=== PATIENT | female | born 1940 | race Caucasian/White ===

== ENCOUNTER 2018-05-28 11:18 | Outpatient (CLI) | payer MEDICARE | END 2018-05-28 11:19 | disposition EMS.NT | LOC: EMS 11:18 | PROVIDERS: ATTEND Surgery | DX: Z03.89 Encounter for observation for other suspected diseases and conditions ruled out (principal) ==

== ENCOUNTER 2018-09-21 10:29 | Outpatient (CLI) | payer MEDICARE, BC | END 2018-09-21 10:30 | disposition critical access hospital (66) | LOC: EMS 10:29 | PROVIDERS: ATTEND Surgery | DX: S01.81XA Laceration without foreign body of other part of head, initial encounter (principal); W01.0XXA Fall on same level from slipping, tripping and stumbling without subsequent striking against object, initial encounter; Y92.008 Other place in unspecified non-institutional (private) residence as the place of occurrence of the external cause | CPT/HCPCS: A0425; A0429 ==

== ENCOUNTER 2018-09-21 10:41 | Emergency (ER) | payer MEDICARE, BC ==
--- NOTE | 2018-09-21 11:00 | ED Physician Documentation ---
PD HPI HEAD INJURY - Stated complaint Stated Complaint: GLF - Chief complaint Chief Complaint: Laceration - History obtained from History obtained from: Patient - History of Present Illness Mechanism of head injury: Fell (tripped and fell forward, striking face on gravel. No notable injury to hands nor knees (small abrasion right palm).) Where head injury occurred: Home Pain level now: 2 Location of injury: Front (nose and forehead mainly) Quality of pain: Throbbing, Aching Associated symptoms: Neck pain (mild left lateral muscles). No: LOC, AMS, Amnesia, Nausea / vomiting Symptoms worsen with: Palpation Contributing factors: No: Anticoagulated, Intoxicated Similar symptoms before: Has not had sx before Review of Systems Cardiac: denies: Chest pain / pressure Respiratory: denies: Dyspnea, Cough GI: denies: Abdominal Pain, Nausea, Vomiting Neurologic: denies: Focal weakness, Numbness PD PAST MEDICAL HISTORY - Past Medical History Cardiovascular: Hypertension, Coronary artery disease, Atrial fibrillation Endocrine/Autoimmune: Type 2 diabetes - Past Surgical History Past Surgical History: Yes /[employer]: Hysterectomy Cardiovascular: CABG - Present Medications Home Medications: Ambulatory Orders Medication Instructions Recorded Confirmed Glyburide,Micronized [Glyburide 1.5 mg 01/19/15 01/19/15 Micronized] Propranolol [Inderal] 60 mg 01/19/15 01/19/15 hydroCHLOROthiazide 12.5 mg 01/19/15 01/19/15 [Hydrochlorothiazide] - Allergies Allergies/Adverse Reactions: Allergies Allergy/AdvReac Type Severity Reaction Status Date / Time all pain meds AdvReac Emesis Uncoded 09/21/18 10:50 - Social History Does the pt smoke?: No Smoking Status: Never smoker Does the pt drink ETOH?: No Does the pt have substance abuse?: No - Immunizations Immunizations are current?: No PD ED PE NORMAL - Vitals Vital signs reviewed: Yes - General General: Alert and oriented X 3, No acute distress, Well developed/nourished - HEENT HEENT: Pharynx benign, Dentition benign, Other (forehead with 2.4 cm curved lac, with some visible debris of dirt, pine needle, and a small gravel piece. These are removed with forceps. Irrigated during closing. nose with swelling and tenderness more to the right side. abrasion on nose with small piece of gravel easily removed. No septal defect on nares. The bony structure feels midline. ) - Neck Neck: Supple, no meningeal sign, No bony TTP (mildly tender left lateral muscles. Good ROM of the neck without bony tenderness. 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, No motor deficit, No sensory deficit, Normal speech Results - Vitals Vitals: Vital Signs - 24 hr 09/21/18 09/21/18 10:44 12:29 Temperature 37.1 C Heart Rate 67 68 Respiratory 19 18 Rate Blood Pressure 178/82 H 165/87 H O2 Saturation 96 99 Oxygen O2 Source Room air Procedures - Laceration (location) forehead Length in cm: 2.4 Wound type: Curved, Into subcut fat, Contaminated (some small piece of gravel and a small pine needle.) Anesthesia: Lidocaine 1% with epi Wound Preparation: Irrigated copiously NS, Debrided moderately, Wound explored, To the base, FB removed, Wound edges modified Skin layer closure: Nylon, Running, Size #-0 - enter number (5), Sutures - enter # (11) Other: Patient tolerated well, No complications, Tetanus UTD Complexity: Simple PD MEDICAL DECISION MAKING - ED course Complexity details: considered differential (no concussive symptoms and not on blood thinners. Good neuro exam. ), d/w patient Departure - Departure Disposition: 01 Home, Self Care Clinical Impression: Fall from slip, trip, or stumble Qualifiers: Encounter type: initial encounter Qualified Code(s): W01.0XXA - Fall on same level from slipping, tripping and stumbling without subsequent striking against object, initial encounter Contusion, nose Qualifiers: Encounter type: initial encounter Qualified Code(s): S00.33XA - Contusion of nose, initial encounter Forehead laceration Qualifiers: Encounter type: initial encounter Qualified Code(s): S01.81XA - Laceration without foreign body of other part of head, initial encounter Condition: Stable Record reviewed to determine appropriate education?: Yes Instructions: ED Contusion Nasal Vs Fx No X Ray, ED Laceration Facial Sutr Tape Follow-Up: Sky Zuniga DO [Primary Care Provider] - Comments: Tylenol or ibuprofen as needed for pains. It is okay to wash and shower. Clean off the wound twice a day with soap and water, or peroxide and water. Apply some antibiotic ointment to it to keep it moist. Also to watch for signs of infection such as purulence, redness or increasing pain. Return to your primary care or the ER at the specified time for suture removal. Suture removal [address] borges could potentially take them out next week when you see your for your regular appointment. At that point she can assess your nose after time for the swelling to go down and see if there is any indication for imaging. Discharge Date/Time: 09/21/18 12:30
[2018-09-21] MEDS ORDERED: MUPIROCIN 2% OINT 1 GM TOP STA (12:16)
[2018-09-21 12:30] VITALS: BP 165/87
== END 2018-09-21 12:30 | disposition home or self-care (01) ==
LOC: EDUNIT# → ED 10:41
DX: S01.81XA Laceration without foreign body of other part of head, initial encounter (principal); S00.33XA Contusion of nose, initial encounter; S00.31XA Abrasion of nose, initial encounter; S60.511A Abrasion of right hand, initial encounter; W01.0XXA Fall on same level from slipping, tripping and stumbling without subsequent striking against object, initial encounter; Y92.009 Unspecified place in unspecified non-institutional (private) residence as the place of occurrence of the external cause; I10 Essential (primary) hypertension; E11.9 Type 2 diabetes mellitus without complications; Z79.84 Long term (current) use of oral hypoglycemic drugs
CPT/HCPCS: 12011; 99282; A9270

== ENCOUNTER 2019-11-24 22:12 | Outpatient (CLI) | payer MEDICARE, BC | END 2019-11-24 23:59 | disposition short-term general hospital (02) | LOC: EMS 22:12 | PROVIDERS: ATTEND Surgery | DX: R10.9 Unspecified abdominal pain (principal); R00.1 Bradycardia, unspecified | CPT/HCPCS: A0425; A0427 ==